=== PATIENT | male | born 1985 | race Caucasian/White ===

== ENCOUNTER 2023-05-07 05:21 | Day surgery (SDC) | payer BC ==
[2023-05-07] MEDS ORDERED: fentaNYL 100 MCG/2 ML SDV IV ONE ×3 (05:22→06:32)
[2023-05-07] MEDS ORDERED: Midazolam 1 MG/ML 2 ML SDV IV ONE ×3 (05:22→06:33)
[2023-05-07] MEDS ORDERED: Dextrose 5%-0.45% NaCl 1,000 ML IV SCH (05:30)
[2023-05-07] MEDS ORDERED: Midazolam 1 MG/ML 2 ML SDV ONE (06:10)
[2023-05-07] MEDS ORDERED: fentaNYL 100 MCG/2 ML SDV ONE (06:10)
== END 2023-05-07 08:20 | disposition home or self-care (01) ==
LOC: DL.ENDO 05:21
PROVIDERS: ATTEND Internal Medicine Gastroenterology
DX: K21.9 Gastro-esophageal reflux disease without esophagitis (principal); Z88.0 Allergy status to penicillin
CPT/HCPCS: 87077; J2250; J3010; J7042

== ENCOUNTER 2023-05-08 05:58 | Day surgery (SDC) | payer BC ==
[2023-05-08] MEDS ORDERED: fentaNYL 100 MCG/2 ML SDV IV ONE ×5 (05:59→07:36)
[2023-05-08] MEDS ORDERED: Midazolam 1 MG/ML 2 ML SDV IV ONE ×7 (05:59→07:34)
[2023-05-08] MEDS ORDERED: Dextrose 5%-0.45% NaCl 1,000 ML IV SCH (06:00)
[2023-05-08] MEDS ORDERED: Midazolam 1 MG/ML 2 ML SDV ONE (06:15)
[2023-05-08] MEDS ORDERED: fentaNYL 100 MCG/2 ML SDV ONE (06:15)
== END 2023-05-08 09:20 | disposition home or self-care (01) ==
LOC: DL.ENDO 05:58
PROVIDERS: ATTEND Internal Medicine Gastroenterology
DX: R19.4 Change in bowel habit (principal); Z88.0 Allergy status to penicillin; Z87.19 Personal history of other diseases of the digestive system; Z80.0 Family history of malignant neoplasm of digestive organs
CPT/HCPCS: J2250; J3010; J7042